=== PATIENT | male | born 1960 | race Caucasian/White ===

== ENCOUNTER 2017-09-06 07:31 | Emergency (ER) | payer BC ==
--- NOTE | 2017-09-06 07:53 | EDM.PDOC ---
ED HPI GENERAL MEDICAL PROBLEM - General Chief Complaint: General Stated Complaint: COUGHING, HOT FLASHES Time Seen by Provider: 09/06/17 07:44 - History of Present Illness INITIAL COMMENTS - FREE TEXT/NARRATIVE: HISTORY AND PHYSICAL: History of present illness: The patient is a 57-year-old male who has a provider in [place] where he lives part-time and presents with a four-day history of cough productive of phlegm and occasionally with blood-streaked phlegm chest discomfort when he is coughing malaise and subjective fevers and sore throat. Patient says he did get his flu shot 2 months ago and has a history of hypertension but no other cardiac or pulmonary problems. Patient says he has been eating and drinking normally without abdominal pain vomiting or diarrhea and has no specific left- sided chest pain but more diffuse chest discomfort with his cough and he feels like it's burning when he coughs. He says it got worse last evening which is why he is here today. His use minimal products [id number] for this. Patient has not had much nasal congestion or sinus drainage or pressure. Review of systems: As per history of present illness and below otherwise all systems reviewed and negative. Past medical history: As per history of present illness and as reviewed below otherwise noncontributory. Surgical history: As per history of present illness and as reviewed below otherwise noncontributory. Social history: No reported history of drug or alcohol abuse. Family history: As per history of present illness and as reviewed below otherwise noncontributory. Physical exam: Gen.: Well-developed well-nourished man who is speaking clearly without breathlessness. Vital signs have been reviewed by me HEENT: Atraumatic, normocephalic, pupils reactive, negative for conjunctival pallor or scleral icterus, mucous membranes moist, throat clear of exudates but there is some posterior oral pharyngeal erythema, there is no cervical adenopathy or nuchal rigidity, neck supple, nontender, trachea midline. Lungs: Clear to auscultation, breath sounds equal bilaterally, chest nontender. No wheezing stridor coarse breath sounds are appreciated bilaterally Heart: S1S2, regular, negative for clicks, rubs, or JVD. Abdomen: Soft, nondistended, nontender. NABS Pelvis: Deferred Genitourinary: Deferred. Rectal: Deferred. Extremities: Atraumatic, negative for cords or calf pain. Neurovascular unremarkable. Neuro: Awake, alert, oriented. Cranial nerves II through XII unremarkable. Cerebellum unremarkable. Motor and sensory unremarkable throughout. Exam nonfocal. Diagnostics: Chest x-ray EKG rapid strep influenza Therapeutics: I discussed with the patient that he is outside of the window for Tamiflu administration as his symptoms have been ongoing for 4 days and he states understanding. I've advised symptomatic care and follow-up in the clinic Impression: Influenza A Definitive disposition and diagnosis as appropriate pending reevaluation and review of above. Generalized Pain Score (Numeric/FACES): 10 - Related Data Allergies Allergy/AdvReac Type Severity Reaction Status Date / Time No Known Allergies Allergy Verified 09/06/17 07:43 Home Meds: Home Meds Lisinopril/Hydrochlorothiazide [Lisinopril-Hctz 20-25 mg Tab] 1 tab PO DAILY 12/19 [History] ED ROS GENERAL - Review of Systems Review Of Systems: ROS reveals no pertinent complaints other than HPI. ED EXAM, GENERAL - Physical Exam Exam: See Below (See dictation) Course - Vital Signs Last Recorded V/S: Last Vital Signs Temp 36.6 C 09/06/17 07:45 Pulse 78 09/06/17 07:45 Resp 18 09/06/17 07:45 BP 116/73 09/06/17 07:45 Pulse Ox 95 09/06/17 07:45 - Orders/Labs/Meds Orders: Active Orders 24 hr Category Date Time Status EKG Documentation Completion [RC] STAT Care 09/06/17 07:49 Active Chest 2V [CR] Stat Exams 09/06/17 07:49 Taken CULTURE STREP A CONFIRMATION [RM] Stat Lab 09/06/17 07:55 Results STREP SCRN A RAPID W CULT CONF [RM] Stat Lab 09/06/17 07:55 Results Departure - Departure Time of Disposition: 08:52 Disposition: Home, Self-Care 01 Condition: Good Clinical Impression: Influenza A - Discharge Information Referrals: PCP,None [Primary Care Provider] - Forms: ED Department Discharge Additional Instructions: The following information is given to patients seen in the emergency department who are being discharged to home. This information is to outline your options for follow-up care. We provide all patients seen in our emergency department with a follow-up referral. The need for follow-up, as well as the timing and circumstances, are variable depending upon the specifics of your emergency department visit. If you don't have a primary care physician on staff, we will provide you with a referral. We always advise you to contact your personal physician following an emergency department visit to inform them of the circumstance of the visit and for follow-up with them and/or the need for any referrals to a consulting specialist. The emergency department will also refer you to a specialist when appropriate. This referral assures that you have the opportunity for followup care with a specialist. All of these measure are taken in an effort to provide you with optimal care, which includes your followup. Under all circumstances we always encourage you to contact your private physician who remains a resource for coordinating your care. When calling for followup care, please make the office aware that this follow-up is from your recent emergency room visit. If for any reason you are refused follow-up, please contact the [facility] emergency department at and ask to speak to the emergency department charge nurse. [facility] Primary care- [place] [address] Rest and push hydration. Please contact your provider and schedule follow-up appointment or contact one of our providers in the clinic in the next few days for follow-up and reevaluation. ER as needed and as discussed. Use over-the- counter medication such as Tylenol or ibuprofen for body aches and fevers over- the-counter cough press as indicated in any other medication to help your symptoms. - My Orders Last 24 Hours: My Active Orders 09/06/17 07:49 EKG Documentation Completion [RC] STAT Chest 2V [CR] Stat 09/06/17 07:55 CULTURE STREP A CONFIRMATION [RM] Stat STREP SCRN A RAPID W CULT CONF [RM] Stat - Assessment/Plan Last 24 Hours: My Active Orders 09/06/17 07:49 EKG Documentation Completion [RC] STAT Chest 2V [CR] Stat 09/06/17 07:55 CULTURE STREP A CONFIRMATION [RM] Stat STREP SCRN A RAPID W CULT CONF [RM] Stat
--- NOTE | 2017-09-06 09:38 | CR ---
EXAM DATE: 09/06/17 PATIENT'S AGE: 57 Patient: RAZ BEAN Facility: [place], [place] Site . Site : [id number] Study: XRay Chest [id number]/4/2018 8:26:26 AM Ordering Physician: Brionna Graf Final Report: INDICATION: PAIN,SOB INDICATION: Pain. Shortness of breath. TECHNIQUE: Chest 2 views. COMPARISON: None FINDINGS: Cardiovascular and mediastinum: Heart size and vasculature are normal in caliber and appearance. Mediastinum is within normal limits. Lungs and pleural spaces: Densities within the lungs bilaterally could represent calcified granulomas or vessels seen end on. Based on their density on plain film, they are likely benign. No sign of infiltrate or mass. No sign of pleural effusion. No pneumothorax. Bones and soft tissues: No significant findings. IMPRESSION: No acute airspace disease. Dictated by Garcia Wnikler MD @ 09/06/2017 8:29:19 AM Dictated by: Garcia Winkler MD @ 09/06/2017 08:29:25 (Electronic Signature) Report Signed by Proxy. [facility]
== END 2017-09-06 09:04 | disposition home or self-care (01) ==
LOC: MW.ED 07:31
DX: J10.1 Influenza due to other identified influenza virus with other respiratory manifestations (principal); I10 Essential (primary) hypertension; Z79.899 Other long term (current) drug therapy
CPT/HCPCS: 71046; 71046-26; 87081; 87804; 87880; 93005; 99284; 99284-25